=== PATIENT | male | born 1940 | race Caucasian/White ===

== ENCOUNTER → 2021-12-05 | Outpatient (CLI) | payer MEDICARE ==
--- NOTE | 2021-12-05 15:19 | US ---
EXAMINATION TYPE: US venous doppler duplex LE LT DATE OF EXAM: 12/05/2021 2:59 PM COMPARISON: NONE CLINICAL HISTORY: R60.9 Edema. Left intermittent pain that comes and goes per patient. Patient state s he is on blood thinners. Patient states he is on blood thinners. SIDE PERFORMED: Left TECHNIQUE: The lower extremity deep venous system is examined utilizing real time linear array sonog martinez with graded compression, doppler sonography and color-flow sonography. VESSELS IMAGED: Common Femoral Vein Deep Femoral Vein Greater Saphenous Vein * Femoral Vein Popliteal Vein Small Saphenous Vein * Proximal Calf Veins- not visualized (* superficial vessels) Left Leg: Femoral vein to popliteal vein appears to be Thickened mas and incompletely compressible . Grayscale, color doppler, spectral doppler imaging performed of the deep veins of the left lower extr emity. Satisfactory color flow and phasicity. Incomplete compression throughout. 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
== END | disposition home or self-care (01) ==
LOC: RADUSWWP 14:30
PROVIDERS: ATTEND Internal Medicine Geriatric Medicine
DX: R60.9 Edema, unspecified (principal)

== ENCOUNTER 2023-03-04 09:39 | Day surgery (SDC) | payer MEDICARE ==
[~2023-03-04 09:39] MED LIST: SODIUM CHLORIDE 0.9% 1,000 ML IV SCH; ceFAZolin 1 GM in SODIUM CHLORIDE 0.9% IRRIG BTL 250 ML IRRIGATION PRN
[2023-03-04] MEDS ORDERED: SODIUM CHLORIDE 0.9% 1,000 ML IV ONE (09:56)
[2023-03-04 10:07] LABS: Glucose,Whole Blood 132 mg/dL (70-110)
[2023-03-04 10:12] VITALS: RESP 16; TEMP 98
[2023-03-04 10:13] LABS: Basophils # (A) 0.1 k/uL (0-0.2); Basophils % (A) 1 %; Eosinophils # (A) 0.4 k/uL (0-0.7); Eosinophils % (A) 6 %; HCT 43.1 % (39.0-53.0); HGB 13.8 gm/dL (13.0-17.5); Lymphocytes # (A) 1.6 k/uL (1.0-4.8); Lymphocytes % (A) 25 %; MCH 31.4 pg (25.0-35.0); MCHC 32.1 g/dL (31.0-37.0); MCV 97.6 fL (80.0-100.0); Mean Platelet Volume 8.4; Monocytes # (A) 0.5 k/uL (0-1.0); Monocytes % (A) 8 %; Neutrophils # (A) 3.9 k/uL (1.3-7.7); Neutrophils % (A) 60 %; Platelet Count 188 k/uL (150-450); RBC 4.41 m/uL (4.30-5.90); WBC 6.5 k/uL (3.8-10.6)
[2023-03-04 10:18] LABS: INR 1.2 (<1.2); Prothrombin Time 12.6 sec (9.0-12.0)
[2023-03-04 10:23] LABS: African American GFR (CKD) 58 (>60 ml/min/1.73 sqM); Anion Gap 7 mmol/L; Blood Urea Nitrogen 19 mg/dL (9-20); Calcium 9.4 mg/dL (8.4-10.2); Carbon Dioxide 30 mmol/L (22-30); Chloride 104 mmol/L (98-107); Glucose 137 mg/dL (74-99); Non-African American GFR(CKD) 51 (>60 ml/min/1.73 sqM); Potassium 4.2 mmol/L (3.5-5.1); Sodium 141 mmol/L (137-145)
[2023-03-04] MEDS ORDERED: LIDOCAINE 1% INJ 10MG/ML (30 ML VIAL-PF) SQ ONE (12:20)
[2023-03-04] MEDS ORDERED: fentaNYL (PF) 50 MCG/1 ML VIAL IV ONE (12:22)
[2023-03-04] MEDS ORDERED: MIDAZOLAM 2 MG/2 ML VIAL IV ONE (12:22)
--- NOTE | 2023-03-04 12:55 | P.PCN ---
Description of Procedure: CARDIOLOGY PROCEDURE NOTE Skating Rink Ice Maker: Dr. Suhail Marquis HPI: Patient is a pleasant 82 year old male with Afib, sick sinus syndrome s/p single chamber PPM who presents for elective generator change given end of battery life. Procedure performed: Single chamber permanent pacemaker generator change, JH Site: Left subclavian Indications: Sick Sinus Syndrome Complications: None Blood Loss: Minimal Description of Procedure: After the risks, benefits, and alternatives of the above-mentioned procedure was explained in detail with the patient, informed consent was obtained. The patient was taken to the cardiac catheterization suite where the left subclavian area was sterily prepped and draped in the usual fashion. Patient was given IV Versed and fentanyl for sedation. The skin over the existing pulse generator was infiltrated with lidocaine. An incision was made in the skin and was deepened until the pectoral fascia was exposed. Hemostasis was obtained. The existing pulse generator was pulled out of the pocket. The lead was disconnected and was checked for thresholds. The existing lead was then inserted into the appropriate position into the new generator. They were then secured with the setscrew provided. The lead and generator were inserted into the pocket with the leads posterior. The subcutaneous tissue was approximated utilizing #2.0 and 3.0 vicryl in an interrupted stitch fashion. The dermal layer was approximated utilizing #4.0 vicryl. The area was cleansed with sterile saline and dried. A sterile 4x4 dressing was applied and the patient was transferred to the post catheterization holding area in stable and satisfactory condition. The patient tolerated the procedure well. Generator Data [employer]: [employer] [place] Brand: IPG [id number] [place] XT SR MRI Model #: [id number] Serial#: [id number] Right Ventricular Bipolar Lead Data: Type: Active fixation lead [employer]: [employer] Model #: 4457 Serial #: [id number] Stimulation Thresholds: Right Ventricular bipolar lead pacing and sensing thresholds Pulse Width: 0.4ms Voltage: 0.5 volts Impedance: 361 ohms R-wave sensin.0 mV Parameter Setting: Pacing mode is VVIR Lower rate 50 bpm Upper rate 130 bpm Impressions: 1. Successful generator change of a single chamber permanent pacemaker in the left pectoral site. Plan: 1. Routine post procedure care will be instituted as well as outpatient follow- up surveillance.
[2023-03-04 17:44] VITALS: BP 128/74
[2023-03-04 17:45] VITALS: PULSE 65
== END 2023-03-04 15:24 | disposition home or self-care (01) ==
LOC: CATHEP 09:39
PROVIDERS: ATTEND Internal Medicine
DX: I48.91 Unspecified atrial fibrillation (principal); I49.5 Sick sinus syndrome; I25.10 Atherosclerotic heart disease of native coronary artery without angina pectoris; I10 Essential (primary) hypertension; E78.2 Mixed hyperlipidemia; E11.9 Type 2 diabetes mellitus without complications; Z79.4 Long term (current) use of insulin; Z79.01 Long term (current) use of anticoagulants; Z45.010 Encounter for checking and testing of cardiac pacemaker pulse generator [battery]; Z86.73 Personal history of transient ischemic attack (TIA), and cerebral infarction without residual deficits; Z79.899 Other long term (current) drug therapy
CPT/HCPCS: 33227; 80048; 85025; 85610; C1786; J2250; J0690; J2001; J3010

== ENCOUNTER 2024-07-31 07:11 | Day surgery (SDC) | payer MEDICARE ==
[~2024-07-31 07:11] MED LIST changes: +ALPRAZolam 0.25 MG TAB PO PRN; +ALPRAZolam 0.5 MG TAB PO PRN; +ATORVASTATIN 80 MG TAB PO STA; +NITROGLYCERIN SL TABS 0.4 MG TAB SUBLINGUAL PRN; -SODIUM CHLORIDE 0.9% 1,000 ML IV SCH; -ceFAZolin 1 GM in SODIUM CHLORIDE 0.9% IRRIG BTL 250 ML IRRIGATION PRN
[2024-07-31] MEDS: ASPIRIN 325 MG TAB PO STA (07:37)
[2024-07-31] MEDS: SODIUM CHLORIDE 0.9% 1,000 ML in EMPTY BAG 1 BAG IV ONE (07:38)
[2024-07-31 07:46] LABS: Glucose,Whole Blood 143 mg/dL (70-110)
[2024-07-31] MEDS: IV FLUID CONTINUATION 1,000 ML IV ONE (07:48)
[2024-07-31 07:57] VITALS: TEMP 97.7
[2024-07-31 07:57] LABS: Basophils # (A) 0.1 k/uL (0-0.2); Basophils % (A) 1 %; Eosinophils # (A) 0.3 k/uL (0-0.7); Eosinophils % (A) 6 %; HCT 40.3 % (39.0-53.0); HGB 13.4 gm/dL (13.0-17.5); Lymphocytes # (A) 1.4 k/uL (1.0-4.8); Lymphocytes % (A) 25 %; MCH 31.3 pg (25.0-35.0); MCHC 33.4 g/dL (31.0-37.0); MCV 93.8 fL (80.0-100.0); Mean Platelet Volume 8.1; Monocytes # (A) 0.4 k/uL (0-1.0); Monocytes % (A) 8 %; Neutrophils # (A) 3.3 k/uL (1.3-7.7); Neutrophils % (A) 59 %; Platelet Count 172 k/uL (150-450); RDW 12.4 % (11.5-15.5); WBC 5.6 k/uL (3.8-10.6)
[2024-07-31 08:20] LABS: African American GFR (CKD) 63 (>60 ml/min/1.73 sqM); Anion Gap 5 mmol/L; Blood Urea Nitrogen 20 mg/dL (9-20); Calcium 9.3 mg/dL (8.4-10.2); Carbon Dioxide 28 mmol/L (22-30); Chloride 104 mmol/L (98-107); Glucose 141 mg/dL (74-99); Non-African American GFR(CKD) 55 (>60 ml/min/1.73 sqM); Sodium 137 mmol/L (137-145)
[2024-07-31] MEDS: fentaNYL (PF) 50 MCG/ML 2 ML AMP IVP ONE (09:20)
[2024-07-31] MEDS: HEPARIN SODIUM,PORCINE (1 ML) 2,500 UNIT in SODIUM CHLORIDE 0.9% 250 ML IRRIGATION PRN (09:20)
[2024-07-31] MEDS: HEPARIN SODIUM,PORCINE 10,000 UNIT in SODIUM CHLORIDE 0.9% 1,000 ML IRRIGATION PRN (09:20)
[2024-07-31] MEDS: LIDOCAINE 1% INJ 10MG/ML (20 ML MDV) SQ ONE (09:22)
[2024-07-31] MEDS: VERAPAMIL SYRINGE (5 MG/10 ML) INTRAARTER ONE (09:30)
[2024-07-31] MEDS: HEPARIN SODIUM 1,000 UN/ML (10ML VL) IV ONE (09:36)
[2024-07-31] MEDS: IOPAMIDOL-370 100ML BTL INJ ONE (09:54)
[2024-07-31] MEDS ORDERED: RX INFO: IV CONTRAST WAS GIVEN 1 EACH MISC MISCELLANE PRN (09:57)
[2024-07-31] MEDS ORDERED: SODIUM CHLORIDE 0.9% 1,000 ML IV SCH (10:00)
--- NOTE | 2024-07-31 10:03 | P.CARDCATH ---
Date of Procedure: 07/31/24 Description of Procedure: Cardiac Catheterization: The patient is an 83-year-old male status post PCI of the LAD, history of hypertension, hyperlipidemia, diabetes mellitus, permanent atrial fibrillation and permanent pacemaker implantation who had an abnormal myocardial perfusion imaging with moderate size anterolateral wall inducible ischemia. Recommendations were made regarding cardiac catheterization, the risks and the complications were discussed with the patient who is in full understanding and a greement. Procedure Description: Patient was brought to electronic lab technician in fasting semi-sedated state after receiving Fentanyl and Benadryl achieiving moderate conscious sedated state. Using Xylocaine Anesthesia and modified Seldinger technique, a 6-Telugu sheath was introduced in the left radial artery . Subsequently, selective coronary angiography was performed using a 5-Telugu 4 bend Eliz catheter. Multiple views of the coronary artery including hemiaxial views were obtained. The left Eliz catheter was used to cross the aortic valve and LVEDP was calculated. Following that, catheter and sheath were removed. Hemostasis was obtained with deployment of vascular band . There was no immediate complication. Patient was returned to room in stable condition. Of note, the patient received a total of 4500 units of intravenous heparin as well as intra-arterial verapamil. Findings: Fluoroscopy: Significant calcification in the proximal LAD was noted Left main: This is a large size vessel, bifurcating into LAD and left circumflex, left main has no obstructive disease LAD: This is a large size vessel, reaching to the apex, calcified proximally. It gives rise to a moderately sized diagonal branch in the proximal segment that has a 60 to 70% stenosis at the ostium. The LAD after the takeoff of the diagonal branch has a 30% eccentric lesion. The rest of the vessel has no high- grade stenosis. Mild bridging was noted in the mid vessel. Left circumflex: This is a nondominant vessel, large in caliber, giving rise to a large obtuse marginal branch. The proximal left circumflex has 20% plaque with no high-grade stenosis RCA: This is a large dominant vessel, bifurcating distally to PDA and PLV. The mid RCA has a 20% plaque, the rest of the vessel has no high-grade stenosis Left Ventriculogram: Not performed Hemodynamics: There was no gradient across aortic valve, LVEDP was 16-20 mmHg Conclusion: 1. Mild disease in the LAD, left circumflex and the RCA 2. Moderate significant disease at the ostium of the diagonal branch 3. Right dominance 4. Mildly elevated LVEDP Recommendations: In view of his anatomy I have recommended to continue medical therapy, it is possible that his defect is related to the ostium of the diagonal branch. Depending on his progress further recommendations will be made. The findings and the recommendations were discussed with the patient and the family and they were in full understanding and agreement. Duration of sedation is 24 minutes.
[2024-07-31 13:10] VITALS: PULSE 56
[2024-07-31 13:43] VITALS: BP 109/56; RESP 14
[2024-07-31] MEDS ORDERED: METOPROLOL TARTRATE 25 MG TAB PO SCH (21:00)
[2024-07-31] MEDS ORDERED: ATORVASTATIN 80 MG TAB PO SCH (21:00)
[2024-08-01] MEDS ORDERED: HYDROCHLOROTHIAZIDE PO SCH (09:00)
[2024-08-01] MEDS ORDERED: BENAZEPRIL PO SCH (09:00)
[2024-08-01] MEDS ORDERED: DIGOXIN 250 MCG TAB PO SCH (09:00)
[2024-08-01] MEDS ORDERED: [UNRECOGNIZED DRUG - OTHER] PO SCH (09:00)
== END 2024-07-31 14:09 | disposition home or self-care (01) ==
LOC: CATHCVL 07:11
PROVIDERS: ATTEND Internal Medicine Interventional Cardiology
DX: I25.10 Atherosclerotic heart disease of native coronary artery without angina pectoris (principal); I10 Essential (primary) hypertension; E78.5 Hyperlipidemia, unspecified; E11.9 Type 2 diabetes mellitus without complications; Z95.0 Presence of cardiac pacemaker; Z79.01 Long term (current) use of anticoagulants; Z79.899 Other long term (current) drug therapy
CPT/HCPCS: 93458; 80048; 85025; C1769 ×3; C1894; J1644 ×3; J2003; J3010; Q9967

== ENCOUNTER 2024-11-28 18:27 | Emergency (ER) | payer MEDICARE ==
[2024-11-28 18:58] VITALS: BP 131/73; PULSE 75; RESP 20; TEMP 98.1
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
[2024-11-28 19:29] LABS: Basophils # (A) 0.1 k/uL (0-0.2); Basophils % (A) 1 %; Eosinophils # (A) 0.4 k/uL (0-0.7); Eosinophils % (A) 5 %; HCT 40.9 % (39.0-53.0); HGB 13.4 gm/dL (13.0-17.5); Lymphocytes % (A) 14 %; MCH 30.5 pg (25.0-35.0); MCHC 32.7 g/dL (31.0-37.0); MCV 93.2 fL (80.0-100.0); Mean Platelet Volume 7.8; Monocytes # (A) 0.7 k/uL (0-1.0); Monocytes % (A) 9 %; Neutrophils # (A) 5.3 k/uL (1.3-7.7); Neutrophils % (A) 70 %; Platelet Count 158 k/uL (150-450); RBC 4.38 m/uL (4.30-5.90); RDW 12.6 % (11.5-15.5); WBC 7.5 k/uL (3.8-10.6)
--- NOTE | 2024-11-28 19:40 | XR ---
EXAMINATION TYPE: XR chest 2V DATE OF EXAM: 11/28/2024 7:30 PM COMPARISON: Chest radiographs from 06/24/2014 CLINICAL INDICATION: Male, 84 years old with history of difficulty breathing; [facility] TECHNIQUE: XR chest 2V Frontal and lateral views of the chest. FINDINGS: Lungs/Pleura: There is no evidence of pleural effusion, focal consolidation, or pneumothorax. Pulmonary vascularity: Unremarkable. Heart/mediastinum: Cardiomediastinal silhouette is unremarkable. Single-lead cardiac conduction devic e overlying the left hemithorax with lead projecting over the right ventricle. Musculoskeletal: No acute osseous pathology. IMPRESSION: No acute cardiopulmonary disease/process. [facility], , 11/28/2024 7:37 PM
[2024-11-28 19:44] LABS: ALT 18 U/L (4-49); AST 19 U/L (17-59); African American GFR (CKD) 53 (>60 ml/min/1.73 sqM); Albumin 4.4 g/dL (3.5-5.0); Alkaline Phosphatase 48 U/L (38-126); Anion Gap 11 mmol/L; Blood Urea Nitrogen 24 mg/dL (9-20); Calcium 9.7 mg/dL (8.4-10.2); Carbon Dioxide 27 mmol/L (22-30); Chloride 99 mmol/L (98-107); Glucose 203 mg/dL (74-99); Non-African American GFR(CKD) 46 (>60 ml/min/1.73 sqM); Potassium 4.1 mmol/L (3.5-5.1); Sodium 137 mmol/L (137-145); Total Bilirubin 0.6 mg/dL (0.2-1.3); Total Protein 6.8 g/dL (6.3-8.2)
[2024-11-28] MEDS ORDERED: chlorproMAZINE 25 MG/ML 2 ML AMP IM STA (20:11)
[2024-11-28] MEDS: BENZONATATE 100 MG CAP PO STA (20:59)
[2024-11-28] MEDS: chlorproMAZINE 25 MG TAB PO STA (20:59)
== END 2024-11-28 21:03 | disposition home or self-care (01) ==
LOC: EC 18:27
DX: R06.6 Hiccough (principal)
CPT/HCPCS: 36415; 71046; 80053; 84484; 85025; 93005; 99285

== ENCOUNTER → 2025-01-04 | Outpatient (CLI) | payer MEDICARE ==
--- NOTE | 2025-01-04 14:30 | US ---
EXAMINATION TYPE: US groin RT DATE OF EXAM: 01/04/2025 COMPARISON: NONE CLINICAL INDICATION: Male, 84 years old with history of R19.09 OTHER INTRA-ABDOMINAL AND PELVIC SWELL ING,; Lump x 1 month. TECHNIQUE: Scanned right groin at palpable area of concern. FINDINGS/IMPRESSION: Ovoid hypoechoic area with hyperechoic center seen. Favored to represent a lymp h node in area of concern right groin measuring 1.3 x 2.4 x 0.5 cm. Cortex measures 2.6 mm. Suggests a benign reactive lymph node. No hernia identified. [facility], , 01/04/2025 2:28 PM
== END | disposition home or self-care (01) ==
LOC: RADUSWWP 13:53
PROVIDERS: ATTEND Surgery
DX: R19.09 Other intra-abdominal and pelvic swelling, mass and lump (principal)